=== PATIENT | female | born 1990 | race Hispanic/Latino ===

== ENCOUNTER 2024-06-25 14:03 | Emergency (ER) | payer SELFPAY ==
[2024-06-25] VITALS (15 sets, daily range): BP systolic 95–136; BP diastolic 61–121
[2024-06-25] MEDS ORDERED: MIDAZOLAM HCL 2 MG/2 ML VIAL ONE (14:08)
[2024-06-25] MEDS ORDERED: SODIUM CHLORIDE 0.9% 1,000 ML IV ONE (14:25)
[2024-06-25 14:43] LABS: BASO% 0.3 % (0-3); EOS% 1.6 % (0-8); HEMATOCRIT 40.2 % (37.0-47.0); HEMOGLOBIN 13.5 g/dl (12.0-16.0); IMMATURE GRANULOCYTES 0.1 % (0.0-5.0); LYMPH% 19.3 % (15-41); MEAN CELL VOLUME 96.6 fL CALC (80.0-100.0); MEAN CORPUSCULAR HGB 32.5 pG CALC (26.0-32.0); MEAN CORPUSCULAR HGB CONC 33.6 g/dL CAL (32.0-36.0); MONO% 6.1 % (2-13); NEUT# 9.9 thou/uL (2.00-7.15); NEUT% 72.6 % (42-76); RED BLOOD COUNT 4.16 mill/uL (4.20-5.60)
[2024-06-25] MEDS ORDERED: ceFAZolin Sodium 1 GM in SODIUM CHLORIDE 0.9% 50 ML IV ONE (14:50)
[2024-06-25] MEDS ORDERED: Diph, Acellular Pertussis, Tet 0.5 ML/VIAL (Tdap) SDV IM ONE (14:50)
[2024-06-25 14:54] LABS: ALBUMIN 4.2 g/dL (3.2-5.0); BILIRUBIN, TOTAL 0.7 mg/dL (0.02-1.3); CREATININE 0.7 mg/dL (0.5-1.0); POTASSIUM 3.7 mmol/l (3.5-5.1); TOTAL PROTEIN 7.4 g/dL (6.3-8.2)
[2024-06-25 15:34] LABS: URINE BILIRUBIN - DIPSTICK Negative (NEGATIVE); URINE BLOOD DIPSTICK Small (NEGATIVE); URINE GLUCOSE - DIPSTICK Negative (NEGATIVE); URINE KETONE Trace mg/dL (NEGATIVE); URINE LEUK ESTERASE Negative (NEGATIVE); URINE NITRITE - DIPSTICK Negative (Negative); URINE PROTEIN - DIPSTICK Negative (NEG-TRACE); URINE SPECIFIC GRAVITY 1.025; URINE UROBILINOGEN - DIPSTICK 0.2 E.U./dL (0.2)
[2024-06-25 15:37] LABS: URINE COLOR Yellow
[2024-06-25 15:41] LABS: URINE BACTERIA MODERATE hpf; URINE SQUAMOUS EPITHELIAL CELL FEW EPI/hpf (0-FEW)
== END 2024-06-25 19:32 | DRG 885 ==
LOC: ED 14:03 → EDBD 14:03 → ED 15:20
PROVIDERS: Family Medicine
PROC: 0HQFXZZ Repair Right Hand Skin, External Approach (ICD-10-PCS; principal; 2024-06-25)
DX: F20.9 Schizophrenia, unspecified (principal); F31.9 Bipolar disorder, unspecified; F42.9 Obsessive-compulsive disorder, unspecified; S61.210A Laceration without foreign body of right index finger without damage to nail, initial encounter; X58.XXXA Exposure to other specified factors, initial encounter; Z20.822 Contact with and (suspected) exposure to COVID-19; R82.71 Bacteriuria